=== PATIENT | female | born 1940 | race Caucasian/White ===

== ENCOUNTER 2021-11-23 14:31 | Emergency (ER) | payer OTHER ==
--- OUTSIDE RECORDS SUMMARY | 2021-11-23 14:33 | XMS REPORT | Continuity of Care Document ---
:1940 Author Organization [facility] t Address [address] [place] [address] Care Team Providers Name Role Phone Halima Farah Attending Clinician Unavailable Problems This patient has no known problems. Allergies, Adverse Reactions, Alerts This patient has no known allergies or adverse reactions. Medications This patient has no known medications. Procedures This patient has no known procedures. Encounters Start End Encounter Admission Attending Care Care Encounter Source Date/Time Date/Time Type Type Clinicians Facility Department ID 2021-03-26 Outpatient Gagan [facility] [id number] Common 14:39:16 Hal[facility] 2021-03-26 Outpatient Gagan [facility] [id number] Common 14:38:27 Hal[facility] 2021-03-26 Outpatient Gagan [facility] [id number] Common 14:18:19 [facility] Results This patient has no known results.
[2021-11-23 14:57] LABS: Hematocrit 41.9 % (36.0-45.0); Lymphocytes % 18.1 % (15.3-44.8); MCV 94.5 fL (80-100); MPV 7.9 fL (7.6-11.3); RBC Red Blood Cell Count 4.43 M/uL (3.86-4.86)
[2021-11-23] MEDS ORDERED: ACETAMINOPHEN 325 MG/SUPP PR ONE (15:02)
[2021-11-23] MEDS ORDERED: NA CHLORIDE 0.9% 2,000 ML ONE (15:02)
[2021-11-23 15:03] LABS: Protime INR 1.61
[2021-11-23 15:09] LABS: Urine Blood 3+ (Negative); Urine Glucose Negative (Negative); Urine Protein 2+ (Negative); Urine Specific Gravity 1.025 (1.005-1.030); Urine pH 5.5 (5.0-7.0)
[2021-11-23 15:16] LABS: Albumin 2.8 g/dL (3.4-5.0); Bilirubin Total 2.7 mg/dL (0.2-1.0); Potassium 4.2 mmol/L (3.5-5.1); Protein, Total 6.2 g/dL (6.4-8.2)
--- NOTE | 2021-11-23 15:16 | RAD REPORT ---
EXAM DESCRIPTION: CT - Head C Spine Cap Wo Con - 11/23/2021 2:54 pm CLINICAL HISTORY: found down, head injury, possible CVA COMPARISON: <Comparisons> TECHNIQUE: Axial [address] head images were obtained. Axial [address] cervical spine images were obtain ed with sagittal and coronal reconstruction images reviewed. Axial 5 mm images of the chest, abdomen and pelvis were obtained. All CT scans are performed using dose optimization technique as appropriate and may include automated exposure control or mA/KV adjustment according to patient size. FINDINGS: No intracranial hemorrhage, mass or edema. No midline shift or abnormal fluid collection. Atrophy changes are mild to moderate in severity. Ventricles are in proportion to the volume loss. Pr ominent chronic ischemic change seen throughout the cerebral white matter extending into each basal g anglia. This diminished attenuation in the left anterior eve that is potentially nonhemorrhagic isch emic focus. Posterior fossa assessment is inherently limited. Arterial and physiologic calcifications are present. Mastoid air cells and paranasal sinuses are clear. No skull fracture. Cervical bodies are normal in height. Minimal anterior subluxation of C3 on C4. C5-6 and C6-7 disc sp bryce narrowing seen with endplate spurring. No fracture or acute bone finding. No prevertebral soft ti ssue thickening or paraspinal mass.Central canal detail is inherently limited on CT imaging. Endotracheal tube is in place. Tip terminates at the aortic arch level. NG tube is in place well posi tioned in the body of the stomach. No pneumothorax, pulmonary contusion or large pleural fluid collection. Dependent atelectasis is pres ent. No large mass or consolidations seen. No mediastinal hematoma and the aorta and pulmonary mayuri jemal are unremarkable. No chest will mass or abnormal axillary finding. No displaced rib fracture. A 50% compression fracture of T7 is seen but appears to be old. No pathologic bone trauma changes. Ther e is accentuated kyphosis. No acute traumatic injury to the solid abdominal visceral. The patient has mild to moderate dilatatio n of the pelvis and calices of the right kidney secondary to a 4 mm proximal right ureter calcificati on. More distally the ureter is decompressed. There is an 8 mm left UPJ calcification not causing sig nificant pelvis or calyx dilatation. No significant urinary bladder finding. 12 millimeter gallstone is present with no acute gallbladder or biliary tree finding. No bowel injury or significant finding. No free air, free fluid or abnormal stranding. No hernia, mass or bulky lymp hadenopathy. No significant vascular finding suspected. IMPRESSION: No hemorrhage, edema or acute cortical infarction finding. Patient does have prominent c hronic ischemic change with diminished attenuation in the left-side eve that could be chronic ischem ic change or nonhemorrhagic acute CVA. Cervical spine degenerative change without acute finding. Proximal right ureter 4 mm calcification with mild to moderate right side pelvis and calyx dilatation . An 8 mm left UPJ calcification does not cause obstruction. Isodense masses and pyelonephritis are n ot excluded on noncontrast imaging. No traumatic abdominal or pelvic injury. No surgically emergent finding. No significant CT Chest finding. No significant CT Abdomen and Pelvis finding.
--- NOTE | 2021-11-23 15:24 | RAD REPORT ---
EXAM DESCRIPTION: RAD - Chest Single View - 11/23/2021 3:17 pm CLINICAL HISTORY: post intubation COMPARISON: Portable October 2013 TECHNIQUE: AP portable chest image was obtained 11/23/2021 3:17 pm in supine position. FINDINGS: Endotracheal tube tip is mid aortic arch level 3 cm above the thong. NG tube is in the me dial left upper quadrant of the abdomen. Resuscitation paddle overlies the lower left chest. Lung volumes are low accentuating interstitial pattern. No diffuse pulmonary edema, mass or consolida tion. Failure or volume overload are not suspected. Heart and vasculature are normal. No measurable pleural effusion and no pneumothorax. No acute bony abnormality seen. No acute aortic findings suspected. IMPRESSION: Endotracheal tube and NG tube are in good position. No acute cardiopulmonary finding evident.
[2021-11-23] MEDS ORDERED: CEFTRIAXONE 1000 MG/VIAL ONE (15:28)
[2021-11-23] MEDS ORDERED: propofoL 1,000 MG/100 ML VIAL IV ONE (15:28)
[2021-11-23] MEDS ORDERED: NA CHLORIDE 0.9% 50 ML ONE (15:29)
--- NOTE | 2021-11-23 15:35 | EDPHYS ---
Physician Documentation [facility] Name: Ghazal Gonzales Age: 81 yrs Sex: Female : 1940 Arrival Date: 11/23/2021 Time: 14:35 Bed 2 Private MD: ED Physician Derrick Polanco HPI: 11/23 15:13 This 81 yrs old Female presents to ER via EMS with complaints of Unresponsive. rn 15:13 The patient presents with unresponsive. Onset: The symptoms/episode began/occurred at rn an unknown time. Possible causes: unknown. Associated signs and symptoms: Pertinent positives:. 15:15 Current symptoms: In the emergency department the patient's symptoms are unchanged from rn the initial presentation. It is unknown whether or not the patient has had similar symptoms in the past. It is unknown whether or not the patient has recently seen a physician. EMS reports found down outside, unknown down time, had a pulse, unresponsive, temp 106, + right sided head injury. . Historical: - Allergies: 14:48 No Known Allergies; ph - PMHx: 14:48 Hypertension; ph - Immunization history:: Adult Immunizations unknown. - Social history:: Smoking status: unknown. - History obtained from: EMS. ROS: 15:15 Unable to obtain ROS due to comatose state. rn Exam: 15:15 Constitutional: This is a well developed, well nourished patient who is intubated and rn unresponsive. Head/Face: + right temporal hematoma/abrasion, no laceration Eyes: Pupils equal, approx 4mm, minimally reactive Cardiovascular: Tachycardic, regular Respiratory: Crackles bilaterally, + equal breath sounds with bagging, patient breathing above vent settings Abdomen/GI: soft, non-distended, no ecchymosis Skin: Warm, dry MS/ Extremity: Pulses equal, no cyanosis. Neuro: GCS 3, intubated 17:09 ECG was reviewed by the Attending Physician. rn Vital Signs: 14:44 BP 104 / 54; Pulse 165; Resp 24; Temp 106.5(R); Pulse Ox 100% on ETT ambu; Weight 74.84 ph kg; 15:00 BP 104 / 59; Pulse 152; Resp 34; Temp 104.5(C); Pulse Ox 100% on 100% FiO2 ETT vent; db 15:15 BP 113 / 68; Pulse 152; Resp 37; Temp 104.5(C); Pulse Ox 100% on 100% FiO2 ETT vent; db 15:20 BP 119 / 63; Pulse 152; Resp 37; Temp 104.4(C); Pulse Ox 100% on 100% FiO2 ETT vent; db 15:30 BP 118 / 63; Pulse 137; Resp 40; Temp 104.3(C); Pulse Ox 100% on 100% FiO2 ETT vent; db 15:40 BP 133 / 75; Pulse 146; Resp 41; Temp 103.9; Pulse Ox 100% on 100% FiO2 ETT vent; db 15:50 BP 141 / 65; Pulse 140; Resp 33; Temp 103(C); Pulse Ox 100% on 100% FiO2 ETT vent; db 16:00 BP 139 / 76; Pulse 139; Resp 39; Temp 102.9(C); Pulse Ox 100% ; db 16:15 BP 121 / 65; Pulse 133; Resp 23; Temp 102.2; Pulse Ox 100% ; db 16:30 BP 135 / 63; Pulse 128; Resp 41; Temp 101.6(C); Pulse Ox 97% on 100% FiO2 ETT vent; db 17:00 BP 128 / 63; Pulse 128; Resp 38; Temp 101.4(C); Pulse Ox 100% on 100% FiO2 ETT vent; db Hope Coma Score: 15:30 Eye Response: none(1). Verbal Response: none(1). Motor Response: none(1). Total: 3. db Procedures: 15:55 Central Line: the site was prepped with Betadine, in sterile fashion, a triple lumen cp catheter was inserted, in the right femoral vein, in 1 attempts. placement was verified, by blood return, the patient tolerated the procedure, well. MDM: 14:35 Patient medically screened. rn 15:30 Differential Diagnosis: CVA, electrolyte abnormality, sepsis, UTI, volume depletion. rn Data reviewed: vital signs, nurses notes, lab test result(s), radiologic studies, CT scan, and as a result, I will admit patient. Counseling: I had a detailed discussion with the patient and/or guardian regarding: the historical points, exam findings, and any diagnostic results supporting the discharge/admit diagnosis, lab results, radiology results, the need for further work-up and treatment in the hospital, the need to transfer to another facility, for higher level of care. Response to treatment: There is no appreciated change of the patient's symptoms at this time, and as a result, I will admit patient. ED course: Pt with possible pontine CVA as well as UTI with proximal stone. Given unresponsive status pontine stroke most likely, but abx given for possible sepsis as well. Will organized transfer for higher level of care, neuro consult, and urological consultation. . 15:47 ED course: COnsulted with Dr. Chairez, wants CT angio prior to transfer, cooling of rn patient, and call back with results. . 16:09 ED course: Family here, states last text received from patient was at 12:47 today and rn everything seemed normal at that time, so last known normal was 12:[address] angio at this time. SPoke at length with family regarding TNK and they understand time constraints at this time. . 16:13 ED course: Still waiting on RT arrival for transport for CTA. rn 16:34 ED course: Temp down to 101, still unresponsive, GCS 3, + cough with moving ETT and rn still breathing above vent. 16:40 ED course: Consulted again with Dr. Chairez, neg CT angio head/neck, he would not give rn TNK/TPA at this time. Recommends MICU admission and treatment for sepsis and neuro consult. . 16:47 ED course: Consulted with Sherin Mchugh, MICU attending at [facility], accepts patient, will rn consult neurology upon arrival. Updated family, no TNK at this time after consultation with ICU doctors at [facility], family agrees with current plan of care. . 11/23 14:36 Order name: Blood Culture Adult (2) rn 11/23 14:36 Order name: CBC with Diff; Complete Time: 15:12 rn 11/23 14:36 Order name: CMP; Complete Time: 15:25 rn 11/23 14:36 Order name: Lactate; Complete Time: 15:25 rn 11/23 14:36 Order name: Protime (+inr); Complete Time: 15:12 rn 11/23 14:36 Order name: Ptt, Activated; Complete Time: 15:12 rn 11/23 14:36 Order name: Urine Culture rn 11/23 14:36 Order name: Urine Microscopic Only; Complete Time: 15:52 11/23 14:37 Order name: CK; Complete Time: 15:25 11/23 15:10 Order name: Urine Dipstick-Ancillary; Complete Time: 15:12 [facility] 11/23 15:26 Order name: Flu; Complete Time: 16:09 ll1 11/23 15:30 Order name: COVID-19 SARS RT PCR (Document "Date of Onset" if Symptomatic); Complete ss Time: 16:11/23 15:53 Order name: ABG Arterial Blood Gas; Complete Time: 16:09 [facility] 11/23 14:36 Order name: Chest Single View XRAY; Complete Time: 15:25 11/23 14:36 Order name: Accucheck; Complete Time: 14:44 11/23 14:36 Order name: Cardiac monitoring; Complete Time: 14:44 11/23 14:36 Order name: EKG - Nurse/Tech; Complete Time: 15:04 11/23 14:36 Order name: IV Saline Lock - Large Bore; Complete Time: 14:50 11/23 14:36 Order name: Labs collected and sent; Complete Time: 14:50 11/23 14:36 Order name: O2 Per Protocol; Complete Time: 14:50 11/23 14:37 Order name: CT Traumagram (Head C Spine CAP wo con); Complete Time: 15:25 11/23 15:47 Order name: CT Head Angio 11/23 15:47 Order name: Neck Angio CT 11/23 15:51 Order name: Head angio; Complete Time: 16:41 [facility] 11/23 15:53 Order name: Neck Angio; Complete Time: 16:36 [facility] 11/23 14:36 Order name: O2 Sat Monitoring; Complete Time: 14:50 11/23 14:36 Order name: Urine Dipstick-Ancillary (obtain specimen); Complete Time: 15:04 11/23 15:21 Order name: [place]; Complete Time: 15:21 tw2 EC:09 Rate is 157 beats/min. Rhythm is regular. QRS [place] is Normal. UT interval is normal. rn QRS interval is normal. QT interval is normal. No Q waves. T waves are Normal. No ST changes noted. Clinical impression: Sinus tachycardia. Interpreted by me. Reviewed by me. Administered Medications: 15:28 Drug: NS 0.9% (30 ml/kg) 30 ml/kg Route: IV; Rate: bolus; Site: left antecubital; ph 16:45 Follow up: Response: No adverse reaction; IV Status: Completed infusion; IV Intake: ph 2000ml 15:28 Drug: Propofol 5 mcg/kg/min Route: IV; Rate: calculated rate; Site: left antecubital; ph 17:00 Follow up: Response: No adverse reaction; IV Status: Infusion continued upon transfer ph 15:30 Drug: Acetaminophen Suppository 650 mg Route: UT; ph 16:00 Follow up: Response: No adverse reaction ph 15:50 Drug: Rocephin (cefTRIAXone) 1 grams Route: IV; Rate: calculated rate; Site: right ph femoral; 16:20 Follow up: Response: No adverse reaction; IV Status: Completed infusion ph Disposition: 15:30 Critical Care:. rn 18:58 Co-signature as Attending Physician, Derrick Polanco MD. rn Disposition Summary: 11/23/21 15:34 Transfer Ordered Transfer Location: [facility] rn Reason: Higher level of care rn Condition: Serious rn Problem: new rn Symptoms: are unchanged rn Accepting Physician: Dr. Santosh Chairez(11/23/21 17:52) kr3 Diagnosis - Cerebral infarction, unspecified rn - Hyperthermia rn - UTI/ Urinary tract infection, site not specified rn - Severe sepsis without septic shock rn Forms: - Medication Reconciliation Form rn - SBAR form pattern hanger time excluding procedures: 15:30 Critical care time: Bedside Care: 35 minutes. Total time: 35 minutes rn Signatures: Dispatcher [employer] Derrick Mckeon MD MD rn Hall, Patricia RN RN Dariel Lay PA PA cp Wise, Tara RN RN tw2 Grace Choi Kelley RN RN kr3 Corrections: (The following items were deleted from the chart) 15:50 15:34 Dr. viri suarez 17:52 15:50 Dr. Santosh Chairez eb kr3
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
[2021-11-23 15:37] LABS: Urine Bacteria <20 /HPF (<20); Urine Mucus Slight /HPF (None Seen); Urine RBC >50 /HPF (None Seen); Urine WBC Clump Many /HPF (None Seen)
[2021-11-23 15:53] LABS: Arterial Blood Carboxyhemoglob 0.9 % (0-1.5); Blood Gas Oxyhemoglobin 97.2 % (94-97); Blood O2 Saturation 99.3 % (92-98.5)
--- NOTE | 2021-11-23 16:34 | RAD REPORT ---
EXAM DESCRIPTION: CT - Neck Angio - 11/23/2021 4:23 pm CLINICAL HISTORY: Large vessel occlusion, stroke-like symptoms, suspected brainstem stroke TECHNIQUE: During dynamic enhancement using nonionic IV contrast, axial 2 mm thick images of the nec k were obtained. Sagittal and axial reconstruction images were generated using MIP technique and revi ewed. All CT scans are performed using dose optimization technique as appropriate and may include automated exposure control or mA/KV adjustment according to patient size. COMPARISON: CT head same date FINDINGS: Contrast density is not optimal. This may be due to diminished cardiac function. Density is felt to be sufficient to exclude large vessel occlusion. No aneurysm or vascular malformation identified. No carotid or vertebral dissection. No aortic arch or great vessel origin abnormality seen. The vertebral artery origin is unremarkable. The left vertebral artery is dominant with a small right vertebral artery. This is believed to be nor mal anatomic variation and not acute right vertebral injury. The small size of the right vertebral ar kristina in the setting of suboptimal contrast density limits assessment. No stenosis, vasculitis or other significant carotid artery finding. No focal abnormality of either vertebral artery. Basilar artery is normal. IMPRESSION: Negative CT angio evaluation of the bilateral carotid and left vertebral artery circula tion. The normal variant small right vertebral artery is more difficult to assess due to the suboptimal con trast density. However, the vessel is not excluded and no significant vascular finding identifiable.
--- NOTE | 2021-11-23 16:38 | RAD REPORT ---
EXAM DESCRIPTION: CT - Head angio - 11/23/2021 4:23 pm CLINICAL HISTORY: Intubation, respiratory distress, stroke-like symptoms, suspected large vessel occ lusion TECHNIQUE: During dynamic enhancement using nonionic IV contrast, axial 1 millimeter thick images of the head were obtained. Sagittal and axial reconstruction images were generated using MIP technique and reviewed. All CT scans are performed using dose optimization technique as appropriate and may include automated exposure control or mA/KV adjustment according to patient size. COMPARISON: CT head same date FINDINGS: Contrast density was not optimal possibly to diminished cardiac function. Density is suff icient for evaluating large vessel occlusion. No aneurysm or vascular malformation identified. Major venous sinuses are patent. No stenosis, named branch occlusion, vasculitis or other significant vascular finding identifiable. B ilateral distal internal carotid artery atherosclerotic calcifications are present. Stenosis of 50% i s estimated. No high-grade or flow restricting internal carotid artery disease. IMPRESSION: Negative CT angio head examination for large vessel occlusion or other significant vasc ular process.
[2021-11-25 11:35] VITALS: BP 128/63; TEMP 101.4; O2SAT 100
--- NOTE | 2021-11-25 17:29 | EKG ---
Test Date: 2021-11-23 Test Time: 15:09:40 [employer] Boat Captain: [employer] MEASUREMENT RESULTS: Intervals: Rate: 157 RI: 128 QRSD: 104 QT: 250 QTc: 404 [place]: P: 70 RI: 128 QRS: 26 T: 133 INTERPRETIVE STATEMENTS: Sinus tachycardia with premature supraventricular complexes Marked ST abnormality, possible lateral subendocardial injury Abnormal ECG Compared to ECG 11/09/2013 20:53:05 Atrial premature complex(es) now present ST (T wave) deviation now present Sinus rhythm no longer present Electronically Signed On 11-25-21 17:27:22 CDT by Aj Hamilton
== END 2021-11-23 17:52 | disposition short-term general hospital (02) ==
LOC: ER 14:31
PROC: 06HM33Z Insertion of Infusion Device into Right Femoral Vein, Percutaneous Approach (ICD-10-PCS; principal; 2021-11-23)
DX: I63.9 Cerebral infarction, unspecified (principal); N39.0 Urinary tract infection, site not specified; R65.20 Severe sepsis without septic shock; R50.9 Fever, unspecified; Z20.822 Contact with and (suspected) exposure to COVID-19; I10 Essential (primary) hypertension
CPT/HCPCS: 87040 ×2; 87088; 85025; 87086; 36415; 82550; 85610; 83605; 85730; 80053; 87804 ×2; 70450; 71250; 72125; 70496; 70498; 71045; 94002; 82805; 51702; 99291; 36556; U0003; Q9967; J2704; J7030; 81003; 81015; 93005